=== PATIENT | female | born 1950 | race Caucasian/White ===

== ENCOUNTER → 2017-09-26 | Outpatient (CLI) | payer MEDICARE, OTHER ==
[~2017-09-26] MED LIST: ASPIRIN 32325 MG/TAB PO; ASPIRIN 81M81 MG/TA2 PO; CALCIUM 600/VIT1 CAP PO; DILAUDID 2MG TAB2 MG PO; DOXYCYCLINE 50M50 MG PO; LEVOXYL0.075 MG PO; LIPITOR20 MG PO; LOPRESSOR 225 MG/TAB PO; NATURE'S BLE1000 MCG PO; NIASPAN1000 MG PO; OMEGA 31000 MG PO; PRENATA1 CTB PO; PROTONIX 40MG T40 MG PO; STOOL SOFTENER100 M2 PO; VITAMIN B-1000 MCG/T PO; VITAMIN D31000 I1 PO; ZOFRAN 4MG T4 MG/TAB PO; ZYRTEC 10MG10 MG PO
== END ==
LOC: MC.RAD 09:26
DX: Z12.31 Encounter for screening mammogram for malignant neoplasm of breast (principal)

== ENCOUNTER → 2018-01-18 | Outpatient (CLI) | payer MEDICARE, OTHER | LOC: COL.VAS 12:20 | DX: R22.42 Localized swelling, mass and lump, left lower limb (principal) ==

== ENCOUNTER → 2018-10-17 | Outpatient (CLI) | payer MEDICARE, OTHER ==
[~2018-10-17] MED LIST changes: +B COMPLEX #11 TAB; +FLEXERIL 1010 MG/TAB PO; +FOSAMAX 70MG TA70 MG PO; +KLONOPIN 1MG1 MG PO; +MELATONIN5 M1 SL; +MIRALAX PA17 GM/Dose PO; +NEURONTIN100 MG/CAP PO; +REQUIP 1MG T1 MG/TAB PO; +SINEMET 25/101 UDTAB PO; +VALU-DRYL ALLER25 MG PO; +ZOCOR 20MG20 MG PO
== END ==
LOC: COL.RAD 06:55
DX: R14.0 Abdominal distension (gaseous) (principal); Z90.49 Acquired absence of other specified parts of digestive tract
CPT/HCPCS: Q9967

== ENCOUNTER → 2018-12-06 | Outpatient (CLI) | payer MEDICARE, OTHER | LOC: COL.RAD 06:36 | DX: G20 Parkinson's disease (principal); R63.0 Anorexia; R14.0 Abdominal distension (gaseous); R10.9 Unspecified abdominal pain | CPT/HCPCS: A9541 ==

== ENCOUNTER 2018-12-27 16:45 | Inpatient (IN) | payer MEDICARE, OTHER ==
[~2018-12-27] VITALS: Ht 165.1 cm; Wt 49.3 kg
[~2018-12-27 16:45] MED LIST changes: +MELATONIN5 M1 PO; -MELATONIN5 M1 SL
[2018-12-27 17:11] VITALS: BP 139/54; PULSE 75; TEMP 97.5
--- NOTE | 2018-12-27 17:43 | NUR ---
Patient arrived to the medical floor at 1730, Notified hospitalist of her arrival, in the room discussing plan of care with patient and family
[2018-12-27] MEDS ORDERED: CALCIUM 600-D 61 TAB PO (18:27)
[2018-12-27] MEDS ORDERED: PRILOSEC 20MG20 MG PO (18:27)
[2018-12-27] MEDS ORDERED: CARAFATE 1GM1 G PO (18:28)
[2018-12-27] MEDS ORDERED: FLONASEALLERGY NS (18:30)
[2018-12-27] MEDS ORDERED: ZOFRAN 4MG T4 MG/TAB PO (18:31)
[2018-12-27 19:35] LABS: BASO % 0.7 % (0.0-2.0); EOS # 0.1 (0.0-0.7); EOS % 1.7 % (0-4.0); HEMOGLOBIN 11.1 g/dl (12.5-16.0); LYMPH # 1.8 (1.2-3.4); LYMPH % 42.2 % (20.0-51.0); MEAN CELL VOLUME 97 fl (80.0-100.0); MEAN CORPUSCULAR HEMOGLOBIN 33 pg (27.0-31.0); MEAN CORPUSCULAR HGB CONC 34 g/dl (33.0-37.0); MEAN PLATELET VOLUME 9.6 fl (7.4-10.4); MONO # 0.3 (0.1-0.6); MONO % 8.2 % (1.7-9.3); PLATELET COUNT 285 K/mm3 (130-400); PROTHROMBIN TIME 11.6 SECONDS (9.7-12.8); RED BLOOD COUNT 3.42 M/mm3 (4.10-5.30); REDCELL DISTRIBUTION WIDTH-CV 11.9 % (11.5-14.5)
[2018-12-27 19:36] LABS: HEMATOCRIT 33.1 % (37.0-47.0)
[2018-12-27 20:07] LABS: ALANINE AMINOTRANSFERASE < 6 U/L (9-52); ALBUMIN 3.8 gm/dL (3.5-5.0); ALKALINE PHOSPHATASE 44 U/L (50-136); ANION GAP 9 mmol/L (7-16); AST,SGOT 36 U/L (15-37); BILIRUBIN,TOTAL 0.2 mg/dL (0.0-1.0); BLOOD UREA NITROGEN 9 mg/dL (7-17); CALCIUM 9.6 mg/dL (8.4-10.2); CARBON DIOXIDE 28 mmol/L (22-30); CHLORIDE 105 mmol/L (98-107); CREATININE, serum 0.53 (0.52-1.25); GLUCOSE 84 mg/dL (74-106); LACTATE DEHYDROGENASE 324 U/L (313-618); LIPASE 64 U/L (23-300); POTASSIUM 3.5 mmol/L (3.4-5.0); SODIUM 143 mmol/L (137-145); TOTAL PROTEIN 6.7 gm/dL (6.4-8.2)
[2018-12-27 20:14] LABS: PRE ALBUMIN 21.3 mg/dL (17.6-36.0)
[2018-12-27 20:59] VITALS: BP 127/55; PULSE 68; TEMP 97.5
--- NOTE | 2018-12-27 21:42 | NUR ---
Resting in bed with family at bedside. Assessment complete. Lungs clear. Heart sounds normal. Bowels active x4. Pulses strong throughout. Left lower leg had boot in place from recent hardware removal surgery. Reports 5/10 pain. Provided with PRN norco. Denies other needs at this time. Call light in reach. IV to right forearm infusing without complications.
--- NOTE | 2018-12-27 23:30 | NUR ---
Resting in bed. Denies needs. Call light in reach.
[2018-12-27 23:33] VITALS: BP 117/46; PULSE 58; TEMP 98.1
--- NOTE | 2018-12-28 02:00 | NUR ---
Resting in bed asleep.
--- NOTE | 2018-12-28 04:25 | NUR ---
Up to restroom and returned to bed. Rating pain 4/10. Denies need for intervention. Call light in reach.
[2018-12-28 04:39] VITALS: BP 105/51; PULSE 58; TEMP 97.4
[2018-12-28 07:02] LABS: HEMOGLOBIN 10.4 g/dl (12.5-16.0); MEAN CELL VOLUME 98 fl (80.0-100.0); MEAN CORPUSCULAR HEMOGLOBIN 33 pg (27.0-31.0); MEAN CORPUSCULAR HGB CONC 34 g/dl (33.0-37.0); PLATELET COUNT 223 K/mm3 (130-400); RED BLOOD COUNT 3.18 M/mm3 (4.10-5.30); REDCELL DISTRIBUTION WIDTH-CV 11.9 % (11.5-14.5)
[2018-12-28 07:25] LABS: CALCIUM 8.8 mg/dL (8.4-10.2); CREATININE, serum 0.57 (0.52-1.25); POTASSIUM 3.8 mmol/L (3.4-5.0)
--- NOTE | 2018-12-28 07:29 | NUR ---
Report given to ESPERANZA Briggs. Patient had uneventful night. Resting in bed this AM.
[2018-12-28 08:10] VITALS: BP 117/50; PULSE 62; TEMP 97.9
[2018-12-28 09:31] LABS: BAND 1 % (0-10); LYMPHOCYTE 62 % (20.0-51.0); NEUTROPHILS 30 % (42.0-75.2)
[2018-12-28 09:38] LABS: PLATELET ESTIMATE NORMAL (NORMAL)
[2018-12-28 09:39] LABS: HYPOCHROMIA 2+
--- NOTE | 2018-12-28 10:20 | NUR ---
Assessment complete,patient awake,eating breakfast at this time.a/ox3.LSCTA.breathing even and unlabored.WBAT to left foot.rates pain at 5/10.prn norco given.PT here to round on pt.all meds given.home med rec done.pt ate about 60% of breakfast.no other needs voiced at this time.call light in reach
--- NOTE | 2018-12-28 12:09 | NUR ---
RECEIVED REPORT FROM ESPERANZA VIZCARRA.
[2018-12-28 12:52] VITALS: BP 115/44; PULSE 81; TEMP 97.7
--- NOTE | 2018-12-28 16:19 | NUR ---
SW attended clinical rounds to discuss discharge planning. Patient lives at home with her . Patient's daughter is also supportive. Patient's PCP is Dr. Hernandez and she obtains prescriptions from [facility]. Patient is currently using a walking boot and walker due to a recent surgery. There is no reported home health services used. SW will follow as needed.
[2018-12-28 16:53] VITALS: BP 132/58; PULSE 76; TEMP 98.6
--- NOTE | 2018-12-28 18:45 | NUR ---
PT HAS HAD AN UNEVENFUL DAY.PT ATE ABOUT 90% OF SUPPER.MIRALAX GIVEN FOR CONSTIPATION.NORCO GIVEN FOR PAIN.PATIENT REFUSED HER SUPPLEMENT THIS EVENING.REPORTS BLOATING AFTER DRINKING IT.WILL HAVE DIETITION F/U WITH PATIENT AND MAKE NECCESARY CHANGES.PATIENT DENIES ANY NEEDS AT THIS TIME.WILL CONTINUE TO MONITOR.CALL LIGHT IN REACH
--- NOTE | 2018-12-28 18:57 | NUR ---
REPORT GIVEN TO ESPERANZA GARIBAY.
[2018-12-28 20:00] VITALS: BP 131/49; PULSE 77; TEMP 98.3
--- NOTE | 2018-12-28 21:39 | NUR ---
ASSESSMENT COMPLETED. PATIENT DENIES C/O ABD PAIN NAUSEA OR VOMITING. FINISHING SUPPER AT TIME OF ASSESSMENT. DENIES C/O OF PAIN OR DISCOMFORT. BOOT TAKEN OF LEFT LOWER EXTREMITY. NO SWELLING, SKIN WARM AND PINK, SENSATION INTACT. DENIES C/O PAIN. NO QUESTIONS OR CONCERNS VOICED AT END OF VISIT.
[2018-12-28 23:32] VITALS: BP 130/59; PULSE 69; TEMP 97.9
--- NOTE | 2018-12-29 00:25 | NUR ---
PATIENT LAYING IN BED WITH EYES CLOSED. AWAKENS WHEN WALKING IN ROOM. PRESENTS WITH RELAXED BODY POSTURE AND EVEN NON LABORED RESPIRATIONS. DENIES C/O OF PAIN OR DISCOMFORT. DENIES NEEDS.
[2018-12-29 04:00] VITALS: BP 118/52; PULSE 76; TEMP 97.7
[2018-12-29 06:56] LABS: BASO % 0.9 % (0.0-2.0); EOS # 0.1 (0.0-0.7); EOS % 3.1 % (0-4.0); GRAN # 1.3 (1.4-6.5); HEMOGLOBIN 10.5 g/dl (12.5-16.0); LYMPH # 1.5 (1.2-3.4); LYMPH % 45.9 % (20.0-51.0); MEAN CELL VOLUME 98 fl (80.0-100.0); MEAN CORPUSCULAR HEMOGLOBIN 33 pg (27.0-31.0); MEAN CORPUSCULAR HGB CONC 33 g/dl (33.0-37.0); MEAN PLATELET VOLUME 9.7 fl (7.4-10.4); MONO # 0.3 (0.1-0.6); MONO % 9.1 % (1.7-9.3); PLATELET COUNT 240 K/mm3 (130-400); RED BLOOD COUNT 3.23 M/mm3 (4.10-5.30); REDCELL DISTRIBUTION WIDTH-CV 11.9 % (11.5-14.5)
[2018-12-29 07:04] LABS: HEMATOCRIT 31.7 % (37.0-47.0)
[2018-12-29 07:11] LABS: CREATININE, serum 0.55 (0.52-1.25); POTASSIUM 3.7 mmol/L (3.4-5.0)
--- NOTE | 2018-12-29 08:25 | NUR ---
Pt lying in bed breathing even and unlabored. C/O pain 10/07. also C/O bloating. Completed morning assessment. PT denies shortness of breath. Black boot applied to right foot. Denies any pain to the foot at this time. Pt had breakfast in room. Will contiue to monitor. Call light in reach.
[2018-12-29 08:35] VITALS: BP 104/45; PULSE 74; TEMP 97.4
--- NOTE | 2018-12-29 10:50 | NUR ---
PT C/O PAIN TO ABDOMEN AND FOOT ON SCALE 5/10. PAIN MEDCIATION ADMINISTERED PER EMAR.
[2018-12-29 12:12] VITALS: BP 117/56; PULSE 75; TEMP 97.4
[2018-12-29 15:44] VITALS: BP 108/46; PULSE 82; TEMP 98
--- NOTE | 2018-12-29 18:55 | NUR ---
Hand off report given to Zeina MATA. Pt C/O pain to INT to R wrist, no redness or swelling noted, but Zeina will reassess later.
[2018-12-29 19:23] VITALS: BP 112/42; PULSE 72; TEMP 97.9
[2018-12-29 23:40] VITALS: BP 115/51; PULSE 62; TEMP 97.5
[2018-12-30 04:17] VITALS: BP 123/55; PULSE 70; TEMP 97.7
--- NOTE | 2018-12-30 04:31 | NUR ---
PATIENT HAD UNEVENTFUL NIGHT. SITTING UP IN BED WATCH TV UNTIL AFTER 2229. PRN TYLENOL 650MG PO GIVEN WITH HS MEDICATIONS PER REUEST FOR LEFT FOOT PAIN. PATIENT REPORTS EFFECTIVENESS. IV SITE FROM RIGHT FOREARM CHANGED TO LEFT FOREARM. NO COMPLAINTS VOICED THIS SHIFT
[2018-12-30 07:09] VITALS: BP 116/45; PULSE 67; TEMP 97.6
--- NOTE | 2018-12-30 09:23 | NUR ---
Pt assessment complete. Pt is A/O x3. She just completed breakfast, she states she has a lot of bloating after eating. No N/V. Abdomen rounded. Pt denies any pain at this time. Walking boot on to L foot, elevated on pillows. Pt denies any other concerns at this time. No needs, call light within reach.
--- NOTE | 2018-12-30 10:40 | NUR ---
Pt up walking the halls with .
[2018-12-30 11:53] VITALS: BP 101/50; PULSE 77; TEMP 97.5
[2018-12-30 15:21] VITALS: BP 121/48; PULSE 81; TEMP 98.7
--- NOTE | 2018-12-30 19:22 | NUR ---
PATIENT SITTING UP IN BED WATCHING TV. DENIES COMPAINTS OR CONCERNS. RATING PAIN IN LEFT FOTT AT 4 ON 0-10 PAIN SCALE. STATES I WALKED A LOT MORE THAN I HAVE I AWHILLE. ICE PACK IN PLACE. ATTITUDE AND AND PLEASANT. DENIES NEEDS AT END OF VISIT.
--- NOTE | 2018-12-30 19:22 | NUR ---
Pt had uneventful day. Rested well and ambulated halls. Intermittent pain to LLE, ice and PRN pain medications administered. Boot on and foot elevated on pillows. Pt had no N/V, reports bloating after eating. No needs or concerns at this time. Report given to ESPERANZA Pastrana. Call light within reach.
[2018-12-30 20:00] VITALS: BP 117/39; PULSE 72; TEMP 98.5
[2018-12-30 23:37] VITALS: BP 117/42; PULSE 66; TEMP 98.3
[2018-12-31 03:48] VITALS: BP 103/45; PULSE 65; TEMP 98.3
[2018-12-31 07:14] VITALS: BP 119/46; PULSE 79; TEMP 98.2
[2018-12-31] MEDS ORDERED: MYLICON 8080 MG/TAB. PO (09:31)
[2018-12-31] MEDS ORDERED: PAMELOR 25MG25 MG PO (09:31)
[2018-12-31] MEDS ORDERED: XIFAXAN550 MG PO (09:32)
--- NOTE | 2018-12-31 10:16 | NUR ---
The patient is to discharge back home today, 12/31. SW presented and explained the IM form to the patient. The patient verbalized understanding, signed, and she was provided a copy. No additional needs at this time.
--- NOTE | 2018-12-31 10:40 | NUR ---
Pt is sitting upright in bed. Rounds made at this time. DC order for today. Will continue to be on an 1800 zachary diet. Daughter in room. vitamin d/c per order. C/O slight feeling of bloating today. Passing gas. SL intact in left FA. Takes her Miralax in water. Walking boot on to L foot. Was up earlier in room without assist.
--- NOTE | 2018-12-31 11:31 | NUR ---
First visit from the antenna specialist. No needs right now.
--- NOTE | 2018-12-31 14:14 | NUR ---
Discharge paperwork and instructions reviewed with patient. All questions answered at this time. IV to LFA, dc'd, catheter tip intact. Pt wheeled out of facility at this time.
[2019-01-01 10:32] LABS: VITAMIN B1 110 nmol/L (70-180)
== END 2018-12-31 14:14 | disposition home or self-care (01) | DRG 391 ==
LOC: MEDICAL 16:45
PROVIDERS: Physician Assistant; ADMIT Internal Medicine
DX: K29.60 Other gastritis without bleeding (principal); E43 Unspecified severe protein-calorie malnutrition; R64 Cachexia; R62.7 Adult failure to thrive; E03.9 Hypothyroidism, unspecified; I10 Essential (primary) hypertension; K21.9 Gastro-esophageal reflux disease without esophagitis; E78.5 Hyperlipidemia, unspecified; Z85.41 Personal history of malignant neoplasm of cervix uteri; F41.9 Anxiety disorder, unspecified; M85.80 Other specified disorders of bone density and structure, unspecified site; G20 Parkinson's disease; K58.2 Mixed irritable bowel syndrome
CPT/HCPCS: 99223-AI; 99232-AI; 99233-AI; 99239; J7030

== ENCOUNTER 2019-02-09 14:46 | Emergency (ER) | payer MEDICARE, OTHER ==
[~2019-02-09] VITALS: Ht 165.1 cm; Wt 48.0 kg
[~2019-02-09 14:46] MED LIST changes: +CALCIUM 600-D 61 TAB PO; +CARAFATE 1GM1 G PO; +FLONASEALLERGY NS; +MYLICON 8080 MG/TAB. PO; +PAMELOR 25MG25 MG PO; +PRILOSEC 20MG20 MG PO; +XIFAXAN550 MG PO
[2019-02-09 14:49] VITALS: BP 163/69; TEMP 97.6
[2019-02-09] MEDS ORDERED: ZOFRAN 4MG T4 MG/TAB PO (15:58)
[2019-02-09] MEDS ORDERED: SYNTHROID0.075 MG/T PO (15:58)
[2019-02-09] MEDS ORDERED: ZOCOR 20MG20 MG PO (15:59)
[2019-02-09] MEDS ORDERED: KLONOPIN2 MG PO (15:59)
[2019-02-09] MEDS ORDERED: SINEMET 25/101 UDTAB PO (16:00)
[2019-02-09] MEDS ORDERED: REQUIP 1MG T1 MG/TAB PO (16:00)
[2019-02-09] MEDS ORDERED: NASONEX SPRAY17 GM NS (16:01)
[2019-02-09] MEDS ORDERED: CARAFATE 1GM1 G PO (16:02)
[2019-02-09] MEDS ORDERED: GAS RELIEF MAX166 M1 PO (16:02)
[2019-02-09] MEDS ORDERED: PRILOSEC 20MG20 MG PO (16:03)
[2019-02-09] MEDS ORDERED: LEXAPRO 10MG10 MG PO (16:04)
[2019-02-09] MEDS ORDERED: NORCO 325 MG-51 TAB PO (16:04)
[2019-02-09] MEDS ORDERED: MULTI VITAMINS1 TAB PO (16:05)
[2019-02-09] MEDS ORDERED: CALCIUM 600 PLU1 TAB PO (16:05)
[2019-02-09] MEDS ORDERED: PHENERGAN 25 TA25 MG PO (16:05)
[2019-02-09] MEDS ORDERED: OMEGA-31 SGL PO (16:06)
[2019-02-09] MEDS ORDERED: STOOL SOFTENER100 M2 PO (16:07)
[2019-02-09] MEDS ORDERED: MELATONIN5 M1 SL (16:07)
[2019-02-09] MEDS ORDERED: BENADRYL25 M2 PO (16:07)
[2019-02-09] MEDS ORDERED: MIRALAX PA17 GM/Dose PO (16:08)
[2019-02-09] MEDS ORDERED: VITAMIND3 5000 PO (16:08)
[2019-02-09] MEDS ORDERED: SENOKOT8.6 MG PO (16:09)
[2019-02-09] MEDS ORDERED: PROBIOTIC-MAJOR PO (16:10)
[2019-02-09] MEDS ORDERED: BIOTIN5000 MCG PO (16:11)
[2019-02-09] MEDS ORDERED: ZYRTEC10MGSGL PO (16:11)
[2019-02-09] MEDS ORDERED: LIDODERM 5% PATC1 EA TP (17:30)
[2019-02-09] MEDS ORDERED: PERCOCET 325 MG1 TA2 PO (17:30)
[2019-02-09 18:00] VITALS: PULSE 66
== END 2019-02-09 18:00 | disposition home or self-care (01) ==
LOC: COL.ER 14:46
DX: S20.211A Contusion of right front wall of thorax, initial encounter (principal); W19.XXXA Unspecified fall, initial encounter
CPT/HCPCS: J1100; J1170

== ENCOUNTER → 2019-02-20 | Outpatient (CLI) | payer MEDICARE, OTHER ==
[~2019-02-20] MED LIST changes: +BENADRYL25 M2 PO; +BIOTIN5000 MCG PO; +CALCIUM 600 PLU1 TAB PO; +GAS RELIEF MAX166 M1 PO; +KLONOPIN2 MG PO; +LEXAPRO 10MG10 MG PO; +LIDODERM 5% PATC1 EA TP; +MELATONIN5 M1 SL; +MULTI VITAMINS1 TAB PO; +NASONEX SPRAY17 GM NS; +NORCO 325 MG-51 TAB PO; +OMEGA-31 SGL PO; +PERCOCET 325 MG1 TA2 PO; +PHENERGAN 25 TA25 MG PO; +PROBIOTIC-MAJOR PO; +SENOKOT8.6 MG PO; +SYNTHROID0.075 MG/T PO; +VITAMIND3 5000 PO; +ZYRTEC10MGSGL PO
== END ==
LOC: COL.RAD 10:22
DX: Z01.812 Encounter for preprocedural laboratory examination (principal); R07.89 Other chest pain
CPT/HCPCS: Q9967

== ENCOUNTER 2019-04-22 12:45 | Outpatient (RCR) | payer MEDICARE, OTHER | END 2019-06-23 | disposition home or self-care (01) | LOC: MKS.ESL.PT | DX: M62.89 Other specified disorders of muscle (principal) ==

== ENCOUNTER 2019-10-04 14:12 | Emergency (ER) | payer MEDICARE, OTHER ==
[~2019-10-04] VITALS: Ht 165.1 cm; Wt 53.6 kg
[2019-10-04 15:12] VITALS: BP 124/76; PULSE 66; TEMP 98
== END 2019-10-04 15:15 | disposition home or self-care (01) ==
LOC: COL.ER 14:12
DX: M79.672 Pain in left foot (principal); E03.9 Hypothyroidism, unspecified; G20 Parkinson's disease; K21.9 Gastro-esophageal reflux disease without esophagitis; Z47.89 Encounter for other orthopedic aftercare; Z90.710 Acquired absence of both cervix and uterus; Z90.89 Acquired absence of other organs

== ENCOUNTER → 2020-01-22 | Outpatient (CLI) | payer MEDICARE, OTHER | LOC: MC.RAD 13:21 | DX: Z12.31 Encounter for screening mammogram for malignant neoplasm of breast (principal); Z78.0 Asymptomatic menopausal state ==

== ENCOUNTER 2020-07-23 14:58 | Emergency (ER) | payer MEDICARE, OTHER ==
[~2020-07-23] VITALS: Ht 165.1 cm; Wt 57.3 kg
[2020-07-23 15:13] VITALS: TEMP 98.2
[2020-07-23 16:02] LABS: BASO % 0.5 % (0.0-2.0); EOS # 0.1 (0.0-0.7); GRAN # 3.6 (1.4-6.5); GRAN % 80.8 % (42.2-75.2); HEMOGLOBIN 10.5 g/dl (12.5-16.0); LYMPH # 0.5 (1.2-3.4); LYMPH % 10.6 % (20.0-51.0); MEAN CELL VOLUME 89 fl (80.0-100.0); MEAN CORPUSCULAR HEMOGLOBIN 28 pg (27.0-31.0); MEAN CORPUSCULAR HGB CONC 31 g/dl (33.0-37.0); MEAN PLATELET VOLUME 8.9 fl (7.4-10.4); MONO # 0.3 (0.1-0.6); MONO % 5.9 % (1.7-9.3); PLATELET COUNT 246 K/mm3 (130-400); RED BLOOD COUNT 3.82 M/mm3 (4.10-5.30); REDCELL DISTRIBUTION WIDTH-CV 13.7 % (11.5-14.5)
[2020-07-23 16:03] LABS: HEMATOCRIT 34.1 % (37.0-47.0)
[2020-07-23 16:12] LABS: ALBUMIN 3.5 gm/dL (3.5-5.0); BILIRUBIN,TOTAL 0.3 mg/dL (0.0-1.0); CALCIUM 8.3 mg/dL (8.4-10.2); CREATININE, serum 0.65 (0.52-1.25); POTASSIUM 3.9 mmol/L (3.4-5.0); TOTAL PROTEIN 6.5 gm/dL (6.4-8.2)
[2020-07-23 17:14] VITALS: BP 122/64; PULSE 70
== END 2020-07-23 17:14 | disposition home or self-care (01) ==
LOC: COL.ER 14:58
PROVIDERS: Physician Assistant
DX: B34.9 Viral infection, unspecified (principal); G20 Parkinson's disease; Z20.828 Contact with and (suspected) exposure to other viral communicable diseases; Z88.6 Allergy status to analgesic agent

== ENCOUNTER 2020-10-15 12:00 | Observation (INO) | payer MEDICARE, OTHER ==
[~2020-10-15] VITALS: Ht 165.1 cm; Wt 54.5 kg
[~2020-10-15 12:00] MED LIST changes: +OMEGA-3 1000 MG1 CAP PO; -OMEGA-31 SGL PO
[2020-10-15 12:28] LABS: HEMOGLOBIN 10.2 g/dl (12.5-16.0); MEAN CELL VOLUME 88 fl (80.0-100.0); MEAN CORPUSCULAR HEMOGLOBIN 28 pg (27.0-31.0); MEAN CORPUSCULAR HGB CONC 32 g/dl (33.0-37.0); MEAN PLATELET VOLUME 9.6 fl (7.4-10.4); PLATELET COUNT 240 K/mm3 (130-400); RED BLOOD COUNT 3.64 M/mm3 (4.10-5.30); REDCELL DISTRIBUTION WIDTH-CV 15.8 % (11.5-14.5)
[2020-10-15 12:29] LABS: HEMATOCRIT 32.1 % (37.0-47.0)
[2020-10-15 12:34] LABS: ALBUMIN 3.7 gm/dL (3.5-5.0); BILIRUBIN,TOTAL 0.5 mg/dL (0.0-1.0); CREATININE, serum 1.32 (0.52-1.25); POTASSIUM 4.4 mmol/L (3.4-5.0); TOTAL PROTEIN 6.5 gm/dL (6.4-8.2)
[2020-10-15 12:47] LABS: MUCOUS Present /lpf; PH 5 (5-8); SQUAMOUS EPITHELIAL 0-2 /hpf; URINE APPEARANCE Hazy; URINE BACTERIA None Seen /hpf; URINE BILIRUBIN Negative (NEGATIVE); URINE BLOOD 1+ (NEGATIVE); URINE COLOR Yellow; URINE GLUCOSE Negative (NEGATIVE); URINE KETONE Trace (NEGATIVE); URINE LEUKOCYTE ESTERASE Negative (NEGATIVE); URINE NITRATE Negative (NEGATIVE); URINE PROTEIN(semi-quant) Negative (NEGATIVE); URINE RBC 0-2 /hpf; URINE UROBILINOGEN Negative (NEGATIVE)
[2020-10-15 12:48] LABS: BAND 26 % (0-10); LYMPHOCYTE 6 % (20.0-51.0); NEUTROPHILS 65 % (42.0-75.2); PLATELET ESTIMATE NORMAL (NORMAL)
[2020-10-15 12:49] LABS: COLLECTION METHOD CATHETER
[2020-10-15] MEDS ORDERED: SYMMETREL100 MG PO (13:11)
[2020-10-15] MEDS ORDERED: PROZAC 20MG20 MG PO (13:11)
[2020-10-15] MEDS ORDERED: NEURONTIN600 MG/TAB PO (13:12)
[2020-10-15] MEDS ORDERED: FOSAMAX 70MG TA70 MG PO (13:13)
[2020-10-15] MEDS ORDERED: VESICARE10 MG PO (13:13)
[2020-10-15] MEDS ORDERED: NOURIANZ40 MG PO (13:14)
[2020-10-15] MEDS ORDERED: ZYRTEC ALLERGY10 MG PO (13:14)
[2020-10-15] MEDS ORDERED: CARBIDOPA LEVODOPA PO (13:19)
--- NOTE | 2020-10-15 14:37 | NUR ---
JAKI Update: JAKI met with patient and son Ervin Limon . Another contact is [facility] . Son reports that he is DPOA. SW requested copy of form. Patient reports that she is feeling weak and is unsteady. SW and family discussed both home health and snf care. Son reports that his DTR is a home health supervisor sound technician at [facility] and they would want her to work with patient. PCP is Dr. Harry Hernandez, Pain is Dr. Orosco, Nuero is Dr Mcdonnell and Dr. Dominguez in [facility]. Patient is reports that have Parkinsons and has a change in speech, gait, and body movement. Patient reports that use of a walker and cane as needed but does not use all the time. Patient affirms that she wants to be full code but does not want to be on a vent. RX is obtained at [facility]. Concerns with patient taking pills as swallowing is hard and she is reported to be selective about what pills she takes. JAKI educated on [facility] services for patient and starting skill process. A referral will need to be sent for home health and SNF.
--- NOTE | 2020-10-15 16:00 | NUR ---
Pt arrived to medical unit room 357 at 1540 from ED. Oriented pt to room, admission assessment and med rec updated. Pt reports discomfort at right AC IV site, new site started to right FA and right AC IV removed per pt request. LR running at 150 ml/hr. Pt A&Ox4. Heart RRR. Lungs CTA. Hat and specimen cup placed in bathroom for stool sample collection. Denies other needs at this time. Call light in reach.
[2020-10-15] MEDS ORDERED: INBRIJA42 M1 IH (16:08)
[2020-10-15] MEDS ORDERED: TYLENOL 325MG325 MG PO (16:10)
[2020-10-15] MEDS ORDERED: ADVIL200 MG PO (16:10)
[2020-10-15 17:07] VITALS: BP 94/37; PULSE 66; TEMP 98.2
[2020-10-15 19:45] VITALS: BP 106/38; PULSE 82; TEMP 98.3
--- NOTE | 2020-10-15 20:00 | NUR ---
Assessment complete. Pt is AXO X3, states she has a generalized ache but denies the desire for pain medication at this time. She is resting quietly in the bed watching TV at this time and she denies further needs. Call light within reach.
[2020-10-15 20:01] VITALS: BP 52/42; BP 96/58; PULSE 82
[2020-10-16 00:11] VITALS: BP 121/39; PULSE 98; TEMP 99.7
[2020-10-16 03:02] VITALS: BP 99/31; PULSE 91; TEMP 99.2
--- NOTE | 2020-10-16 06:50 | NUR ---
Report received from ESPERANZA Lezama. Pt sitting up in bed. Reports sore throat this AM, requests cough drops or throat spray. Will f/u w/hospitalist on this. Denies other needs currently. Call light in reach.
[2020-10-16 06:57] LABS: MEAN CELL VOLUME 88 fl (80.0-100.0); MEAN CORPUSCULAR HGB CONC 32 g/dl (33.0-37.0); MEAN PLATELET VOLUME 10.3 fl (7.4-10.4); PLATELET COUNT 189 K/mm3 (130-400); RED BLOOD COUNT 3.21 M/mm3 (4.10-5.30)
[2020-10-16 06:59] LABS: CALCIUM 8.4 mg/dL (8.4-10.2); CREATININE, serum 0.88 (0.52-1.25); POTASSIUM 3.8 mmol/L (3.4-5.0)
[2020-10-16 07:01] LABS: HEMATOCRIT 28.2 % (37.0-47.0); HEMOGLOBIN 9.1 g/dl (12.5-16.0); MEAN CORPUSCULAR HEMOGLOBIN 28 pg (27.0-31.0)
[2020-10-16 07:41] LABS: BAND 50 % (0-10); BASOPHIL 1 % (0-2); EOSINOPHIL 2 % (0-4); LYMPHOCYTE 1 % (20.0-51.0); NEUTROPHILS 44 % (42.0-75.2); PLATELET ESTIMATE NORMAL (NORMAL)
[2020-10-16 08:02] VITALS: BP 109/39; PULSE 88; TEMP 98.3
--- NOTE | 2020-10-16 08:30 | NUR ---
Shift assessment complete. Pt up working w/PT at this time. Denies pain but reports sore throat. Chloraseptic spray ordered. Heart RRR. Lungs CTA. A&Ox4. Continuing to monitor.
[2020-10-16 12:18] VITALS: BP 122/54; PULSE 83; TEMP 97.9
--- NOTE | 2020-10-16 13:27 | NUR ---
First visit from the corn press operator. No needs right now.
--- NOTE | 2020-10-16 15:12 | NUR ---
Patient to discharge to [facility] today.
[2020-10-16 15:33] VITALS: BP 113/33; PULSE 84; TEMP 98.6
--- NOTE | 2020-10-16 16:00 | NUR ---
Report given to ESPERANZA Newton. Pt taken down to IPR via WC by OT.
== END 2020-10-16 16:00 ==
LOC: COL.ER 12:00 → MEDICAL 15:03
PROVIDERS: Family Medicine; Physician Assistant; ADMIT Student in an Organized Health Care Education/Training Program
DX: M62.82 Rhabdomyolysis (principal); R19.7 Diarrhea, unspecified; N17.9 Acute kidney failure, unspecified; G20 Parkinson's disease; E78.5 Hyperlipidemia, unspecified; E03.9 Hypothyroidism, unspecified; K21.9 Gastro-esophageal reflux disease without esophagitis; D72.825 Bandemia; R13.10 Dysphagia, unspecified; G62.9 Polyneuropathy, unspecified; M85.80 Other specified disorders of bone density and structure, unspecified site; F41.9 Anxiety disorder, unspecified; F32.9 Major depressive disorder, single episode, unspecified; Z98.890 Other specified postprocedural states; Z20.822 Contact with and (suspected) exposure to COVID-19; Z98.84 Bariatric surgery status; Z90.710 Acquired absence of both cervix and uterus; W01.0XXA Fall on same level from slipping, tripping and stumbling without subsequent striking against object, initial encounter; Z85.41 Personal history of malignant neoplasm of cervix uteri; Z79.890 Hormone replacement therapy; Z79.899 Other long term (current) drug therapy; Z88.5 Allergy status to narcotic agent
CPT/HCPCS: G0378; J7120

== ENCOUNTER 2020-10-16 14:36 | Inpatient (IN) | payer MEDICARE, OTHER ==
[~2020-10-16] VITALS: Ht 165.1 cm; Wt 53.9 kg
[~2020-10-16 14:36] MED LIST changes: +ADVIL200 MG PO; +CARBIDOPA LEVODOPA PO; +INBRIJA42 M1 IH; +NEURONTIN600 MG/TAB PO; +NOURIANZ40 MG PO; +PROZAC 20MG20 MG PO; +SYMMETREL100 MG PO; +TYLENOL 325MG325 MG PO; +VESICARE10 MG PO; +ZYRTEC ALLERGY10 MG PO
[2020-10-16 17:55] VITALS: BP 92/60; PULSE 84; TEMP 98.1
[2020-10-17 02:20] VITALS: BP 139/51; PULSE 92; TEMP 98.5
[2020-10-17 02:20] LABS: STREP SCREEN NEGATIVE
[2020-10-17 05:55] VITALS: BP 126/49; PULSE 96; TEMP 98.2
[2020-10-17 17:16] VITALS: BP 139/61; PULSE 95; TEMP 98.3
[2020-10-18 05:23] VITALS: BP 147/43; PULSE 84; TEMP 98
[2020-10-18 15:51] VITALS: BP 110/45; PULSE 74; TEMP 98.5
[2020-10-18 18:35] VITALS: BP 120/76
[2020-10-19 05:04] VITALS: BP 151/56; PULSE 81; TEMP 98.4
[2020-10-19 15:00] LABS: COLLECTION METHOD CLEAN CATCH
[2020-10-19 15:11] LABS: MUCOUS Present /lpf; PH 5 (5-8); URINE APPEARANCE Hazy; URINE BACTERIA None Seen /hpf; URINE BILIRUBIN Negative (NEGATIVE); URINE BLOOD Negative (NEGATIVE); URINE COLOR Yellow; URINE GLUCOSE Negative (NEGATIVE); URINE KETONE Trace (NEGATIVE); URINE LEUKOCYTE ESTERASE Negative (NEGATIVE); URINE NITRATE Negative (NEGATIVE); URINE PROTEIN(semi-quant) Negative (NEGATIVE); URINE RBC 0-2 /hpf; URINE UROBILINOGEN Negative (NEGATIVE)
[2020-10-19 16:33] VITALS: BP 114/51; PULSE 77; TEMP 98.1
[2020-10-20 04:09] VITALS: BP 120/59; PULSE 79; TEMP 98.1
[2020-10-20 17:15] VITALS: BP 125/50; PULSE 72; TEMP 98.4
[2020-10-21 05:40] VITALS: BP 140/55; PULSE 73; TEMP 98.6
[2020-10-21 17:15] VITALS: BP 102/44; PULSE 78; TEMP 98.5
[2020-10-22 03:51] VITALS: BP 106/49; PULSE 82; TEMP 97.6
[2020-10-22 16:38] VITALS: BP 129/41; PULSE 73; TEMP 98.1
[2020-10-23 05:38] VITALS: BP 147/49; PULSE 76; TEMP 98.2
[2020-10-23 15:37] VITALS: BP 129/50; PULSE 70; TEMP 97.8
[2020-10-24 05:24] VITALS: BP 130/55; PULSE 74; TEMP 98.4
[2020-10-24] MEDS ORDERED: SINEMET CR 50 M1 TER PO (15:19)
[2020-10-24 18:25] VITALS: BP 116/46; PULSE 73; TEMP 97.2
[2020-10-25 05:08] VITALS: BP 131/47; PULSE 68; TEMP 97.6
[2020-10-25 17:25] VITALS: BP 102/36; PULSE 72; TEMP 98
[2020-10-26 05:22] VITALS: BP 126/45; PULSE 64; TEMP 97.5
[2020-10-26 15:38] VITALS: BP 121/37; PULSE 65; TEMP 97.4
[2020-10-27 05:11] VITALS: BP 126/43; PULSE 61; TEMP 97.9
[2020-10-27 15:53] VITALS: BP 133/65; PULSE 67; TEMP 97.6
[2020-10-28 05:20] VITALS: BP 119/49; PULSE 66; TEMP 96.4
[2020-10-28 16:29] VITALS: BP 132/60; PULSE 71; TEMP 97.6
[2020-10-29 04:58] VITALS: BP 124/47; PULSE 69; TEMP 97.6
[2020-10-29 18:11] VITALS: BP 132/49; PULSE 70; TEMP 98
[2020-10-30 05:21] VITALS: BP 130/51; PULSE 70; TEMP 97.8
[2020-10-30] MEDS ORDERED: NEURONTIN300 MG/CAP PO (08:53)
[2020-10-30] MEDS ORDERED: CAPSAICIN0.025% TP (08:54)
== END 2020-10-30 12:45 | disposition home health service (06) | DRG 57 ==
PROVIDERS: Student in an Organized Health Care Education/Training Program; ADMIT Internal Medicine
DX: G20 Parkinson's disease (principal); M62.82 Rhabdomyolysis; N17.9 Acute kidney failure, unspecified; E44.0 Moderate protein-calorie malnutrition; E03.9 Hypothyroidism, unspecified; G62.9 Polyneuropathy, unspecified; K21.9 Gastro-esophageal reflux disease without esophagitis; M85.80 Other specified disorders of bone density and structure, unspecified site; Z66 Do not resuscitate; D64.9 Anemia, unspecified; R13.10 Dysphagia, unspecified; F41.9 Anxiety disorder, unspecified; F32.9 Major depressive disorder, single episode, unspecified; G47.00 Insomnia, unspecified; R33.9 Retention of urine, unspecified; K12.0 Recurrent oral aphthae; B00.1 Herpesviral vesicular dermatitis; E78.5 Hyperlipidemia, unspecified; R53.81 Other malaise; Z79.1 Long term (current) use of non-steroidal anti-inflammatories (NSAID); Z96.60 Presence of unspecified orthopedic joint implant; Z85.41 Personal history of malignant neoplasm of cervix uteri; Z90.710 Acquired absence of both cervix and uterus; Z88.5 Allergy status to narcotic agent; Z91.81 History of falling
CPT/HCPCS: 99222-AI; 99231-AI; 99232-AI; 99239; G0378; J1650; J7120

== ENCOUNTER 2020-12-11 08:10 | Outpatient (CLI) | payer MEDICARE, OTHER ==
[~2020-12-11] VITALS: Ht 165.1 cm; Wt 53.4 kg
[~2020-12-11 08:10] MED LIST changes: +CAPSAICIN0.025% TP; +NEURONTIN300 MG/CAP PO; +SINEMET CR 50 M1 TER PO
[2020-12-11 08:35] VITALS: BP 141/65; PULSE 63; TEMP 97.7
[2020-12-11] MEDS ORDERED: INBRIJA42 M1 IH (08:47)
[2020-12-11] MEDS ORDERED: ZOLOFT 100MG100 MG PO (09:01)
[2020-12-11] MEDS ORDERED: ZOFRAN 4MG T4 MG/TAB PO (09:03)
[2020-12-11] MEDS ORDERED: GAS RELIEF MAX166 M1 PO (09:04)
[2020-12-11] MEDS ORDERED: MACROBID 1100 MG/CAP PO (09:05)
[2020-12-11] MEDS ORDERED: NATURE'S BLE1000 MCG PO (09:07)
[2020-12-11] MEDS ORDERED: OMEGA-3 FISH1000 MG PO (09:08)
[2020-12-11] MEDS ORDERED: MELATONIN5 M1 SL (09:09)
[2020-12-11] MEDS ORDERED: VITAMIND3 5000 PO (09:10)
[2020-12-11] MEDS ORDERED: MIRALAX PA17 GM/Dose PO (09:11)
[2020-12-11] MEDS ORDERED: ASPIRIN 81M81 MG/TA2 PO (09:12)
--- NOTE | 2020-12-11 09:16 | NUR ---
Pt able to use wheeled walker to get to EU room 9, alert and oriented, doing well, 20G INT started to RFA. Pt left with laboratory aide staff for procedure via w/c. Will await return.
--- NOTE | 2020-12-11 12:27 | NUR ---
Discharge teachign ocmpleted at this time. INT dc'd, tip intact. Pt received discharge packet, answered all questions, reviewed f/u appointment. Pt left with all belongings, ambulated out via own wheeled walker to patient entrance, daughter to drive her home, criteria met.
== END 2020-12-11 12:00 | disposition home or self-care (01) ==
LOC: COL.CAR 08:10
DX: R55 Syncope and collapse (principal); R42 Dizziness and giddiness; G20 Parkinson's disease; E78.2 Mixed hyperlipidemia; E78.00 Pure hypercholesterolemia, unspecified; Z85.41 Personal history of malignant neoplasm of cervix uteri; Z90.710 Acquired absence of both cervix and uterus; Z90.49 Acquired absence of other specified parts of digestive tract; Z88.5 Allergy status to narcotic agent; Z88.8 Allergy status to other drugs, medicaments and biological substances; Z79.899 Other long term (current) drug therapy; Z79.890 Hormone replacement therapy; Z20.822 Contact with and (suspected) exposure to COVID-19; Z82.49 Family history of ischemic heart disease and other diseases of the circulatory system; Z82.61 Family history of arthritis

== ENCOUNTER 2021-04-28 21:13 | Emergency (ER) | payer MEDICARE, OTHER ==
[~2021-04-28] VITALS: Ht 165.1 cm; Wt 54.5 kg
[~2021-04-28 21:13] MED LIST changes: +MACROBID 1100 MG/CAP PO; +OMEGA-3 FISH1000 MG PO; +ZOLOFT 100MG100 MG PO
[2021-04-29 00:25] VITALS: BP 180/79; PULSE 89; TEMP 97.9
== END 2021-04-29 00:30 | disposition home or self-care (01) ==
LOC: COL.ER 21:13
DX: G20 Parkinson's disease (principal); Z87.311 Personal history of (healed) other pathological fracture; Z98.890 Other specified postprocedural states; Z79.899 Other long term (current) drug therapy; W01.198A Fall on same level from slipping, tripping and stumbling with subsequent striking against other object, initial encounter

== ENCOUNTER 2021-05-03 10:15 | Outpatient (CLI) | payer MEDICARE, OTHER ==
[~2021-05-03] VITALS: Ht 165.1 cm; Wt 49.1 kg
[2021-05-03 10:52] VITALS: BP 95/46; PULSE 63; TEMP 98.5
[2021-05-03] MEDS ORDERED: INBRIJA42 M1 IH (11:45)
[2021-05-03] MEDS ORDERED: ESTRACE0.1 MG/GM VG (11:48)
[2021-05-03] MEDS ORDERED: ZYRTEC 10MG10 MG PO (11:49)
[2021-05-03] MEDS ORDERED: NASONEX SPRAY17 GM NS (11:49)
[2021-05-03] MEDS ORDERED: BIOTIN5000 MCG PO (11:49)
--- NOTE | 2021-05-03 12:10 | NUR ---
Pt remained in dept for obs following initial reclast infusion. She tolerated it without issue, no s/s of adverse reaction. INT DC'd with catheter intact. She is escorted out to hospital entrance to wait for her ride.
[2021-05-03] MEDS ORDERED: CENTRUM SILVER1 TAB PO (12:23)
[2021-05-03] MEDS ORDERED: PROBIOTIC BLEN1 EACH PO (12:25)
[2021-05-03] MEDS ORDERED: MELATONIN5 M1 PO (12:25)
[2021-05-03] MEDS ORDERED: MIRALAX PA17 GM/Dose PO (12:25)
[2021-05-03] MEDS ORDERED: FERROUS GL325 MG/TAB PO (12:26)
[2021-05-03] MEDS ORDERED: NATURAL MAGNES200 MG PO (12:26)
[2021-05-03] MEDS ORDERED: NATURE'S BLEND100 M2 PO (12:26)
== END 2021-05-03 12:29 | disposition home or self-care (01) ==
LOC: EUO 10:15
DX: M81.0 Age-related osteoporosis without current pathological fracture (principal)
CPT/HCPCS: J3489

== ENCOUNTER 2021-05-05 22:31 | Emergency (ER) | payer MEDICARE, OTHER ==
[~2021-05-05] VITALS: Ht 165.1 cm; Wt 54.5 kg
[~2021-05-05 22:31] MED LIST changes: +CENTRUM SILVER1 TAB PO; +ESTRACE0.1 MG/GM VG; +FERROUS GL325 MG/TAB PO; +NATURAL MAGNES200 MG PO; +NATURE'S BLEND100 M2 PO; +PROBIOTIC BLEN1 EACH PO
[2021-05-05 22:43] VITALS: BP 201/71; PULSE 61; TEMP 97.6
== END 2021-05-05 23:29 | disposition left against medical advice (07) ==
LOC: COL.ER 22:31
DX: R07.9 Chest pain, unspecified (principal)

== ENCOUNTER → 2021-05-31 | Outpatient (CLI) | payer MEDICARE, OTHER | LOC: MC.RAD 11:43 | DX: Z12.31 Encounter for screening mammogram for malignant neoplasm of breast (principal) ==